=== PATIENT | male | born 1955 | race Caucasian/White ===

== ENCOUNTER 2023-03-14 11:34 | Emergency (ER) | payer OTHER ==
[2023-03-14] MEDS ORDERED: Ketorolac 30 MG/ML SDV IM ONE (12:44)
[2023-03-14] MEDS ORDERED: Dexamethasone 10 MG/ML SDV IM STA (12:44)
== END 2023-03-14 13:19 | disposition home or self-care (01) ==
LOC: MW.ED 11:34
DX: M25.552 Pain in left hip (principal)
CPT/HCPCS: 73502; 96372; 99283; J1100; J1885

== ENCOUNTER 2023-03-23 16:12 | Emergency (ER) | payer OTHER | END 2023-03-23 17:52 | disposition home or self-care (01) | LOC: MW.ED 16:12 | DX: K03.81 Cracked tooth (principal) | CPT/HCPCS: 99283 ==